=== PATIENT | male | born 1975 | race American Indian/Alaskan Native ===

== ENCOUNTER 2018-07-20 21:18 | Observation (INO) | payer OTHER ==
--- NOTE | 2018-07-20 22:33 | Emergency Department Report ---
Blank Doc - Documentation Documentation: pt presents with left sided CP that began 5 days ago feels like a pressure +sob with pain, no SOB at rest no N/V no radiation of the pain never had before no LE edema no recent long car or plane ride, no recent surgery, no immobilization no cardiac hx, no family cardiac hx no family hx of DVT/PE no PMHx no daily meds no allergies to meds non smoker occ drinker no drug use
[2018-07-20 22:51] LABS: Basophils # (Auto) 0.1 K/mm3 (0.0-0.1); Basophils % (Auto) 1.2 % (0.0-1.8); Eosinophils % (Auto) 0.7 % (0.0-4.3); Hematocrit 43.7 % (35.5-45.6); Hemoglobin 15.1 gm/dl (11.8-15.2); Lymphocytes # (Auto) 2.4 K/mm3 (1.2-5.4); Lymphocytes % (Auto) 45.5 % (13.4-35.0); Mean Corpuscular HGB Conc 35 % (32-34); Mean Corpuscular Volume 90 fl (84-94); Monocytes # (Auto) 0.4 K/mm3 (0.0-0.8); Monocytes % (Auto) 7.7 % (0.0-7.3); Platelet Count 160 K/mm3 (140-440); Red Blood Count 4.85 M/mm3 (3.65-5.03); Red Cell Distribution Width 13.2 % (13.2-15.2)
[2018-07-20 23:08] LABS: INR 0.92 (0.87-1.13); Partial Thromboplastin Time 27.4 Sec. (24.2-36.6)
[2018-07-20 23:12] LABS: BUN/Creatinine Ratio 15; Blood Urea Nitrogen 19 mg/dL (9-20); Calcium 10.1 mg/dL (8.4-10.2); Hemolysis Index 16
--- NOTE | 2018-07-20 23:16 | Emergency Department Report ---
ED Chest Pain HPI - General Chief Complaint: Chest Pain Stated Complaint: CHEST PAIN Time Seen by Provider: 07/20/18 22:29 Source: patient Mode of arrival: Ambulatory Limitations: No Limitations - History of Present Illness Initial Comments: Patient is a 42-year-old male that presents emergency room with complaints of intermittent chest pain and shortness of breath. He states that his chest pain has been going on for 3 days but is becoming more frequent and worsening. Patient states that his chest pain is better with rest and worse with exertion. Patient states that his chest pain came back approximately 2 hours ago. Patient states his chest pain as a 10 out of 10 and is in his left chest and when he has chest pain he becomes acutely short of breath. Patient states chest pain is not radiating. MD Complaint: chest pain -: Sudden Onset: during rest, during exertion Pain Location: substernal, left chest Pain Radiation: none Severity: moderate Severity scale (0 -10): 10 Quality: sharp Consistency: intermittent Improves With: rest Worsens With: exertion re: diaphoresis, dyspnea. denies: nausea, vomting Other Symptoms: denies: cough, fever, syncope, rash, acid taste in mouth, leg swelling, palpitations, burping Treatments Prior to Arrival: none Aspirin use within the Past 7 Days: (0) No - Related Data On Oral Contraceptives: No Allergies Allergy/AdvReac Type Severity Reaction Status Date / Time No Known Allergies Allergy Verified 07/21/18 00:27 Heart Score - HEART Score History: Moderately suspicious EKG: Non-specific Age: < 45 Risk factors: No known risk factors Troponin: < normal limit HEART Score: 2 ED Review of Systems ROS: Stated complaint: CHEST PAIN Other details as noted in HPI Constitutional: denies: chills, fever Eyes: denies: eye pain, eye discharge, vision change ENT: denies: ear pain, throat pain Respiratory: shortness of breath. denies: cough, wheezing Cardiovascular: chest pain. denies: palpitations Endocrine: no symptoms reported Gastrointestinal: denies: abdominal pain, nausea, diarrhea Genitourinary: denies: urgency, dysuria Musculoskeletal: denies: back pain, joint swelling, arthralgia Skin: denies: rash, lesions Neurological: denies: headache, weakness, paresthesias Psychiatric: denies: anxiety, depression Hematological/Lymphatic: denies: easy bleeding, easy bruising ED Past Medical Hx - Past Medical History Previous Medical History?: No - Surgical History Past Surgical History?: No - Family History Family history: no significant - Social History Smoking Status: Never Smoker Substance Use Type: Alcohol ED Physical Exam - General Limitations: No Limitations General appearance: alert, in no apparent distress - Head Head exam: Present: atraumatic, normocephalic - Eye Eye exam: Present: normal appearance - ENT ENT exam: Present: mucous membranes moist - Neck Neck exam: Present: normal inspection - Respiratory Respiratory exam: Present: normal lung sounds bilaterally. Absent: respiratory distress, wheezes, rales, rhonchi, chest wall tenderness, accessory muscle use - Cardiovascular Cardiovascular Exam: Present: regular rate, normal rhythm. Absent: systolic murmur, diastolic murmur, rubs, gallop - GI/Abdominal GI/Abdominal exam: Present: soft, normal bowel sounds. Absent: distended, tenderness, guarding - Rectal Rectal exam: Present: deferred - Extremities Exam Extremities exam: Present: normal inspection - Back Exam Back exam: Present: normal inspection - Neurological Exam Neurological exam: Present: alert, oriented X3 - Psychiatric Psychiatric exam: Present: normal affect, normal mood - Skin Skin exam: Present: warm, dry, intact, normal color. Absent: rash ED Course Vital Signs 07/20/18 07/20/18 21:23 22:30 Temperature 98.0 F 98.0 F Pulse Rate 105 H 105 H Respiratory 18 18 Rate Blood Pressure 137/91 137/91 O2 Sat by Pulse 96 96 Oximetry - Reevaluation(s) Reevaluation #1: Discussed all results with patient. Patient will be admitted to the hospitalist service. Patient agrees to plan of care. 07/21/18 00:01 - Consultations Consultation #1: Hospitalist consulted for admission. Hospitalist to admit patient. Hospitalist to assume care patient. 07/21/18 00:01 MOI score - Moi Score Age > 65: (0) No Aspirin use within the Past 7 Days: (0) No 3 or more CAD Risk Factors: (0) No 2 or more Angina events in past 24 hrs: (1) Yes Known CAD with more than 50% Stenosis: (0) No Elevated Cardiac Markers: (0) No ST Deviation Greater than 0.5mm: (0) No MOI Score: 1 ED Medical Decision Making - Lab Data Result diagrams: 07/20/18 22:40 07/20/18 22:43 - EKG Data -: EKG Interpreted by Me EKG shows normal: sinus rhythm, axis, intervals, QRS complexes, ST-T waves Rate: normal - EKG Data Interpretation: [facility] - Radiology Data Radiology results: report reviewed, image reviewed PROCEDURE: XR CHEST ROUTINE 2V TECHNIQUE: PA and lateral chest radiographs were obtained. HISTORY: Chest Pain COMPARISONS: None. FINDINGS: Heart: Normal. Mediastinum/Vessels: Normal. Lungs/Pleural space: Normal. Bony thorax: No acute osseous abnormality. IMPRESSION: Normal examination. - Medical Decision Making Patient is a 42-year-old male presents emergency room with complaints of chest pain and shortness of breath. Patient was admitted to the hospitalist service. Patient's initial cardiac workup was negative. Patient will need to have ACS ruled out. - Differential Diagnosis acs. Chest pain. Shortness of breath. Critical care attestation.: If time is entered above; I have spent that time in minutes in the direct care of this critically ill patient, excluding procedure time. ED Disposition Clinical Impression: Shortness of breath Chest pain Qualifiers: Chest pain type: unspecified Qualified Code(s): R07.9 - Chest pain, unspecified Disposition: DC-09 OP ADMIT IP TO THIS HOSP Is pt being admited?: Yes Does the pt Need Aspirin: No Condition: Critical Time of Disposition: 00:04
--- NOTE | 2018-07-20 23:40 | XRay Report ---
PROCEDURE: XR CHEST ROUTINE 2V TECHNIQUE: PA and lateral chest radiographs were obtained. HISTORY: Chest Pain COMPARISONS: None. FINDINGS: Heart: Normal. Mediastinum/Vessels: Normal. Lungs/Pleural space: Normal. Bony thorax: No acute osseous abnormality. IMPRESSION: Normal examination. This document is electronically signed by Selin Mosher DO., Jul 20 2018 11:38:24 PM ET
[2018-07-21] MEDS ORDERED: SODIUM CHLORIDE FLUSH SYRINGE 10 ML IV PRN (00:21)
[2018-07-21] MEDS ORDERED: TYLENOL PO PRN (00:21)
[2018-07-21] MEDS ORDERED: MORPHINE IV PRN (00:21)
[2018-07-21] MEDS ORDERED: ZOFRAN IV PRN (00:21)
--- NOTE | 2018-07-21 00:27 | History and Physical Report ---
History of Present Illness Date of examination: 07/21/18 History of present illness: 42 -year-old male with no medical problems comes emergency room because of chest pain that started last Monday. Patient is in the left chest which he described as a pressure-like sensation, intermittent every 10 minutes, intensity 5/10, no radiation, cannot identify exacerbating or relieving factors. Denies nausea vomiting, shortness of breath, diaphoresis or palpitation Review of systems Constitutional: no weight loss, chills, fever Ears, eyes, nose, mouth and throat: no nasal congestion, no nasal discharge, no sinus pressure, no vision change, no red eye. Neck: No neck pain or rigidity. Cardiovascular: no palpitations Respiratory: no cough, shortness of breath Gastrointestinal: no hematochezia, abdominal pain Genitourinary : no frequency , no hematuria Musculoskeletal: no joint swelling or muscle ache Integumentary: no rash, no pruritis Neurological: no parathesias, no focal weakness Endocrine: no cold or heat intolerance, no polyuria or polydipsia Hematologic/Lymphatic: no easy bruising, no easy bleeding, no gland swelling Allergic/Immunologic: no urticaria, no angioedema. PAST MEDICAL HISTORY:none PAST SURGICAL HISTORY: none SOCIAL HISTORY: social alcohol, nobdrugs, tobacco FAMILY HISTORY: Hypertension Medications and Allergies Allergies Allergy/AdvReac Type Severity Reaction Status Date / Time No Known Allergies Allergy Verified 07/21/18 00:27 Home Medications Medication Instructions Recorded Confirmed Last Taken Type Pantoprazole [Protonix] 40 mg PO BID #14 tablet 07/21/18 Unknown Rx Active Meds: Active Medications Acetaminophen (Tylenol) 650 mg PO Q4H PRN PRN Reason: Pain MILD(1-3)/Fever >100.5/MARIA Enoxaparin Sodium (Lovenox) 30 mg SUB-Q QDAY ANN Morphine Sulfate (Morphine) 2 mg IV Q4H PRN PRN Reason: Pain, Moderate (4-6) Ondansetron HCl (Zofran) 4 mg IV Q8H PRN PRN Reason: Nausea And Vomiting Sodium Chloride (Sodium Chloride Flush Syringe 10 Ml) 10 ml IV BID ANN Sodium Chloride (Sodium Chloride Flush Syringe 10 Ml) 10 ml IV PRN PRN PRN Reason: LINE FLUSH Exam - Physical Exam Narrative exam: General Apperance: The patient lying in bed, breathing comfortable HEENT: Normocephalic, atraumatic. Pupils equally round and reactive to light, EOMI, no sclericterus or JVD or thyromegaly or nodule. , no carotid bruit, mucous membranes moist, no exudate or erythema Heart: S1-S2, regular is rhythm Lungs: Clear to auscultation bilaterally, breathing comfortable Abdomen: Positive bowel sounds, soft, nontender, nondistended, no organomegaly Extremities: No edema cyanosis clubbing Skin: no rash, nodule, warm and dry Neuro: cranial nerves 2-12 intact, speech is fluent, motor/sensory intact - Constitutional Vitals: Temp Pulse Resp BP Pulse Ox 98.0 F 105 H 18 137/91 96 07/20/18 22:30 07/20/18 22:30 07/20/18 22:30 07/20/18 22:30 07/20/18 22:30 Results - Labs CBC & Chem 7: 07/20/18 22:40 07/20/18 22:43 Labs: Abnormal lab results 07/20/18 07/20/18 Range/Units 22:40 22:43 MCHC 35 H (32-34) % Lymph % (Auto) 45.5 H (13.4-35.0) % [place] % (Auto) 7.7 H (0.0-7.3) % Glucose 115 H (75-100) mg/dL - Imaging and Cardiology EKG: image reviewed Chest x-ray: report reviewed Assessment and Plan Assessment Chest pain rule out ACS Plan Admit medicine Check cardiac enzymes, stress IV morphine, DVT prophylaxis
[2018-07-21 02:30] LABS: Creatine Kinase MB 3.1 ng/mL (0.0-4.0)
[2018-07-21] MEDS ORDERED: LOVENOX SUB-Q SCH ×2 (10:00)
[2018-07-21] MEDS ORDERED: SODIUM CHLORIDE FLUSH SYRINGE 10 ML IV SCH (10:00)
--- NOTE | 2018-07-21 12:25 | Discharge Summary ---
Providers - Providers Date of Admission: 07/21/18 00:21 Date of discharge: 07/21/18 Attending physician: FLORINA RECIO Primary care physician: USED EQUIPMENT SALES REPRESENTATIVE Hospitalization Reason for admission: chest pain intermittent for the last 4 or 5 days Condition: Stable Pertinent studies: Chest x-ray; normal study Stress test; no ischemia Hospital course: 42 -year-old male patient with no significant medical problems was admitted through emergency room with the complaints of chest pain intermittent for the last 4 or 5 days. Patient was admitted and managed symptomatically, serial cardiac enzymes Negative, EKG no acute abnormality noted, today patient underwent stress test, which was negative for reversible ischemia Normal left ventricle function, symptoms significantly improved Chest pain probably due to noncardiac causes, like gastroesophageal reflux disease Advised Protonix, Today patient is comfortable in no new complaints vital signs stable Physical examination at discharge is unremarkable., Discharge the patient on Protonix Advised to follow primary care physician, and if no improvement advised to see p rivate drum stock clerk And GI for further evaluation and management Discharge diagnoses; --Atypical chest pain; probably noncardiac, stress test negative --Gastroesophageal reflux disease; probably the cause of chest pain, advised Protonix Condition stable at discharge Disposition: DC-01 TO HOME OR SELFCARE Time spent for discharge: 31 min Core Measure Documentation - Palliative Care Palliative Care/ Comfort Measures: Not Applicable - Core Measures Any of the following diagnoses?: none Exam - Constitutional Vitals: Temp Pulse Resp BP Pulse Ox 98.2 F 84 18 117/59 98 07/21/18 08:17 07/21/18 09:48 07/21/18 08:17 07/21/18 08:17 07/21/18 08:17 General appearance: Present: no acute distress, well-nourished - EENT Eyes: Present: PERRL, EOM intact - Neck Neck: Present: supple, normal ROM - Respiratory Respiratory effort: normal Respiratory: negative: rales, rhonchi, wheezing - Cardiovascular Rhythm: regular Heart Sounds: Present: S1 & S2 - Extremities Extremities: no ischemia, No edema - Abdominal General gastrointestinal: Present: soft, non-tender, non-distended, normal bowel sounds - Integumentary Integumentary: Present: clear, warm - Musculoskeletal Musculoskeletal: strength equal bilaterally - Psychiatric Psychiatric: appropriate mood/affect, cooperative - Neurologic Neurologic: CNII-XII intact, moves all extremities Plan Activity: no restrictions Diet: regular Additional Instructions: If you have chest pain or shortness of breath, contact M.D. Or go to emergency room. Having recurrent chest pain he may need cardiology evaluation, advised to see Dr. Laird at [facility] as needed Follow up with: PRIMARY CARE, [Primary Care Provider] - 7 Days YVAN LAIRD MD [Staff Physician] - 6 Weeks Prescriptions: Pantoprazole [Protonix] 40 mg PO BID #14 tablet
[2018-07-21 12:56] VITALS: BP 169/89
--- NOTE | 2018-07-21 13:04 | Treadmill Report ---
NUCLEAR PERFUSION STUDY REASON FOR TEST: Chest pain. IMAGING PROTOCOL: The patient received 10 mCi of Technetium 99m Tetrofosmin for resting image and 28 mCi of Technetium 99m Tetrofosmin for stress imaging. The imaging for the whole procedure was completed 30-90 minutes following the initial injection of Technetium 99m Tetrofosmin. The SPECT imaging in the 180 degree arc was performed in the right anterior oblique projection. Computerized reconstruction of the images was performed for analysis. The patient exercised on Marek protocol for 9 minutes. Resting heart rate is 96, max heart rate of 163, which is 90% maximum heart rate. Resting blood pressure 125/89, max blood pressure is 169/89. The patient's baseline EKG, sinus rhythm, nonspecific ST-Ts. The patient had no EKG changes suggestive of ischemia. No arrhythmias stopped secondary to shortness of breath. SUMMARY: 1. Negative treadmill EKG. 2. Good exercise capacity 9 minutes Marek protocol. 3. No exaggerated BP response to exercise. 4. There is no diagnostic EKG changes or arrhythmia suggestive of ischemia. JOB# [id number] ODETTE/SAMANTHA
== END 2018-07-21 15:12 | disposition home or self-care (01) ==
LOC: ED 21:18 → 4A 07-21 00:21
PROVIDERS: ADMIT Internal Medicine; ATTEND Internal Medicine
DX: R07.89 Other chest pain (principal); Z79.899 Other long term (current) drug therapy
CPT/HCPCS: 36415; 71046; 80048; 82550; 82553; 84484; 85025; 85379; 85610; 85730; 93005; 93010; 93017; 99284; G0378